=== PATIENT | female | born 2005 | race African-American/Black ===

== ENCOUNTER 2023-02-13 18:15 | Emergency (ER) | payer BC, SELFPAY ==
[2023-02-13 19:01] LABS: Bilirubin Neg (Negative); Blood, Urine 150 (Negative); Clarity Clear (Clear); Glucose, Urine (Dipstick) Normal (Negative); Ketone, Urine Negative (Negative); Leukocyte Negative (Negative); Nitrite Negative (Negative); Protein, Urine (Dipstick) Negative (Neg-Trace); Urobilinogen Normal mg/dL (Less than 2)
[2023-02-13 19:03] LABS: Pregnancy Test - Urine (BHCG) Negative (Negative); Pregu Control Background? CLEAR/WHITE (CLR/WHITE); Pregu Control Bar Appear? YES (CONTROL BAR)
[2023-02-13 19:11] LABS: Bacteria/HPF Rare-Few HPF (None Seen); CAUTI Indications for Culture Pelvic or flank pain; Mucous/LPF 2+ LPF (<2+); RBC/HPF 21-50 HPF (0-3); Squamous Epithelial 0-3 HPF (0-3); WBC/HPF 0-3 HPF (0-3)
[2023-02-13 19:13] LABS: Urine Culture Reflex No No
== END 2023-02-13 20:18 | disposition home or self-care (01) ==
LOC: CSHERS 18:15
DX: R10.30 Lower abdominal pain, unspecified (principal); N94.89 Other specified conditions associated with female genital organs and menstrual cycle
CPT/HCPCS: 81001; 81025; 99284

== ENCOUNTER 2023-05-13 20:57 | Emergency (ER) | payer BC | END 2023-05-13 21:56 | disposition home or self-care (01) | LOC: CSHERS 20:57 | DX: J06.9 Acute upper respiratory infection, unspecified (principal); Z20.822 Contact with and (suspected) exposure to COVID-19 | CPT/HCPCS: 87635; 99283 ==

== ENCOUNTER 2025-01-23 14:43 | Emergency (ER) | payer BC, SELFPAY | END 2025-01-23 17:43 | disposition home or self-care (01) | LOC: CSHERS 14:43 | DX: M79.641 Pain in right hand (principal); F17.210 Nicotine dependence, cigarettes, uncomplicated | CPT/HCPCS: 99283 ==

== ENCOUNTER 2025-03-10 18:06 | Emergency (ER) | payer SELFPAY ==
[2025-03-10] MEDS ORDERED: Ibuprofen 200 MG TAB ONE (18:36)
[2025-03-10] MEDS ORDERED: predniSONE 20 MG TAB ONE (18:36)
== END 2025-03-10 20:04 | disposition home or self-care (01) ==
LOC: CSHERS 18:06
DX: M54.50 Low back pain, unspecified (principal); F17.210 Nicotine dependence, cigarettes, uncomplicated; V89.2XXA Person injured in unspecified motor-vehicle accident, traffic, initial encounter
CPT/HCPCS: 72100; 99283; J7512